=== PATIENT | female | born 1995 | race Caucasian/White ===

== ENCOUNTER 2016-09-15 02:11 | Emergency (ER) | payer SELFPAY ==
[~2016-09-15] VITALS: Ht 162.6 cm; Wt 64.0 kg
[~2016-09-15 02:11] MED LIST: IBUP-1542 PO
[2016-09-15 02:16] VITALS: Ht 162.6 cm; Wt 64.0 kg
[2016-09-15] MEDS ORDERED: IBUPROFEN 800 MG TAB PO ONE (03:00)
[2016-09-15] MEDS ORDERED: IBUP800T25 PO (03:09)
[2016-09-15] MEDS ORDERED: ACET500C5 PO (03:10)
--- NOTE | 2016-09-15 04:25 | ERD ---
ER Documentation Chief Complaint Date/Time DATE: 09/15/16 TIME: 04:20 Chief Complaint Left detatch nail thumb HPI This 21-year-old female presents to the emergency department today complaining of left thumb name pain and nail detachment. Patient states that she was trying to grab her cat when the cat jumped and lifted up her nail. Denies any previous trauma, fevers or chills. She has not taken any medication for the pain. ROS All systems reviewed and are negative except as per history of present illness. Medications Home Meds Active Scripts Acetaminophen* (Tylophen*) 500 Mg Capsule, 1 CAP PO Q6H Y for PAIN AND OR ELEVATED TEMP, #30 CAP Prov:YVONNE GUERRERO PA-C 09/15/16 Ibuprofen* (Motrin*) 800 Mg Tab, 800 MG PO Q6, #30 TAB Prov:YVONNE GUERRERO PA-C 09/15/16 Ibuprofen* (Motrin*) 600 Mg Tab, 600 MG PO Q6H Y for PAIN AND OR ELEVATED TEMP, #30 Prov:TIFFANIE NG NP 11/17/14 Allergies Allergies: Coded Allergies: avocado (Verified Allergy, Unknown, 11/17/14) PMhx/Soc Medical and Surgical Hx: pt denies Medical Hx, pt denies Surgical Hx History of Surgery: No Anesthesia Reaction: No Hx Neurological Disorder: No Hx Respiratory Disorders: No Hx Cardiac Disorders: No Hx Psychiatric Problems: No Hx Miscellaneous Medical Probl: No Hx Alcohol Use: Yes (Social) Hx Substance Use: No Hx Tobacco Use: Yes Smoking Status: Current every day smoker Physical Exam Vitals Vital Signs Date Time Temp Pulse Resp B/P Pulse Ox O2 Delivery O2 Flow Rate FiO2 09/15/16 02:16 98.6 95 20 118/70 99 Physical Exam Const: No acute distress Head: Atraumatic Eyes: Normal Conjunctiva ENT: Normal External Ears, Nose and Mouth. Neck: Full range of motion..~ No meningismus. Resp: Clear to auscultation bilaterally Cardio: Regular rate and rhythm, no murmurs Skin: No petechiae or rashes MSK: Left thumbnail with 2-1/2 cm acrylic nails attached that are growing out. With bleeding underneath the nail. Nail attached at nailbed. Full active range of motion of thumb. Nontender bone. Pulses 2+. Distal neurovascularly intact. Neur: Awake and alert Psych: Normal Mood and Affect Results 24 hrs Current Medications Medications (Trade) Dose Ordered Sig/Brandon Route PRN Reason Start Time Stop Time Status Last Admin Dose Admin Ibuprofen (Motrin) 800 mg ONCE ONCE PO 09/15/16 03:00 09/15/16 03:01 DC 09/15/16 03:20 Procedures/MDM This is a 21-year-old female presents to the emergency department today complaining of left thumbnail pain after lifting up her thumbnail while trying to grab her cat earlier today. On physical exam patient's bleeding is well controlled. Was attached at the nailbed. There is evidence of 2.5 cm acrylic nails attached. This time I do not feel the patient requires further workup or evaluation. Patient's wound was cleaned here in the emergency department. She was instructed to go to her nail salon and get her acrylic nails removed. Patient has no tenderness on the bone and I have low suspicion for fracture. Patient is afebrile and otherwise well-appearing. Low suspicion for infection at this time. Symptoms at this time is consistent with partial nail avulsion. Patient was given a prescription for Tylenol and Motrin for home. At this time the patient is stable for discharge and outpatient management. Patient should follow up with their PCP in the next 1-2 days. They may return to the emergency department sooner for any persistent or worsening of symptoms. Patient understood and agreed with the plan. Departure Diagnosis: Primary Impression: Nail problem Condition: Fair Patient Instructions: Nail Avulsion, Partial Referrals: [facility] YOU HAVE RECEIVED A MEDICAL SCREENING EXAM AND THE RESULTS INDICATE THAT YOU DO NOT HAVE A CONDITION THAT REQUIRES URGENT TREATMENT IN THE EMERGENCY DEPARTMENT. FURTHER EVALUATION AND TREATMENT OF YOUR CONDITION CAN WAIT UNTIL YOU ARE SEEN IN YOUR DOCTORS OFFICE WITHIN THE NEXT 1-2 DAYS. IT IS YOUR RESPONSIBILITY TO MAKE AN APPOINTMENT FOR FOLOW-UP CARE. IF YOU HAVE A PRIMARY DOCTOR --you should call your primary doctor and schedule an appointment IF YOU DO NOT HAVE A PRIMARY DOCTOR YOU CAN CALL OUR PHYSICIAN REFERRAL HOTLINE AT IF YOU CAN NOT AFFORD TO SEE A PHYSICIAN YOU CAN CHOSE FROM THE FOLLOWING [facility] [address] [facility]. [facility] [address] [facility] [facility] [address] [facility] [address] [facility] [address] [facility]. [facility] [address] Additional Instructions: Call your primary care doctor TOMORROW for an appointment during the next 1-2 days.See the doctor sooner or return here if your condition worsens before your appointment time. Take Tylenol or Motrin for pain Get acrylic nail removed Use Band-Aid to help from nail lifting up YVONNE GUERRERO PA-C Sep 15, 2016 04:25
== END 2016-09-15 03:27 | disposition home or self-care (01) ==
LOC: FTE 02:11
DX: M79.645 Pain in left finger(s) (principal); F17.210 Nicotine dependence, cigarettes, uncomplicated
CPT/HCPCS: 99283